=== PATIENT | male | born 1960 | race Caucasian/White ===

== ENCOUNTER 2018-01-21 06:11 | Day surgery (SDC) | payer OTHER ==
[~2018-01-21] VITALS: Ht 172.7 cm; Wt 97.3 kg
[2018-01-21] MEDS ORDERED: BENZOCAINE 20% 50 MCG/SPRAY 57 GM TP ONE (06:12)
[2018-01-21] MEDS ORDERED: LIDOCAINE HCL 4% 50 ML SOLUTION TP ONE (06:12)
[2018-01-21] MEDS ORDERED: ALBUTEROL SULFATE 2.5 MG/0.5 ML NEB SOLUTION NEB ONE (06:12)
[2018-01-21] MEDS ORDERED: EPINEPHrine 1:1,000 [1 MG/ML] AMP IM ONE (06:12)
[2018-01-21] MEDS ORDERED: LIDOCAINE HCL 2% 30 ML JELLY TP ONE (06:12)
[2018-01-21] MEDS ORDERED: SODIUM CHLORIDE 0.9% 1,000 ML IV ONE ×2 (06:36→07:30)
[2018-01-21] MEDS ORDERED: CLOP75 PO (07:02)
[2018-01-21] MEDS ORDERED: MIDAZOLAM HCL 2 MG/2 ML VIAL ONE (08:01)
[2018-01-21] MEDS ORDERED: FentaNYL CITRATE-PF 100 MCG/2 ML VIAL ONE (08:01)
[2018-01-21] MEDS ORDERED: MethylPREDNISolone SOD SUCC 125 MG/2 ML VIAL IVP ONE (08:15)
[2018-01-21] MEDS ORDERED: PROMETHAZINE HCL/CODEINE 6.25-10MG/5ML SYRUP UDCUP PO ONE (08:45)
[2018-01-21] MEDS ORDERED: MethylPREDNISolone SOD SUCC 125 MG/2 ML VIAL ONE (08:46)
[2018-01-21] MEDS ORDERED: OXYGEN THERAPY IH SCH (20:00)
== END 2018-01-21 09:35 | disposition home or self-care (01) ==
LOC: SURGERY 06:11
PROVIDERS: ATTEND Internal Medicine Critical Care Medicine
DX: J38.4 Edema of larynx (principal); B37.0 Candidal stomatitis; J84.111 Idiopathic interstitial pneumonia, not otherwise specified; F17.210 Nicotine dependence, cigarettes, uncomplicated; I10 Essential (primary) hypertension; E11.9 Type 2 diabetes mellitus without complications; K21.9 Gastro-esophageal reflux disease without esophagitis; F32.9 Major depressive disorder, single episode, unspecified; F41.9 Anxiety disorder, unspecified; Z95.5 Presence of coronary angioplasty implant and graft; Z90.49 Acquired absence of other specified parts of digestive tract; Z86.74 Personal history of sudden cardiac arrest; Z79.01 Long term (current) use of anticoagulants; Z79.899 Other long term (current) drug therapy
CPT/HCPCS: 31623; 31624; 71045; 87015; 87070; 87205; 87220; 88108; 88312; J0171; J2250; J2930; J3010; J7030